=== PATIENT | female | born 1945 | race African-American/Black ===

== ENCOUNTER → 2016-09-02 | Outpatient (CLI) | payer OTHER ==
[~2016-09-02] MED LIST: AVAPRO300 MG PO; CYCLOBENZAPRINE10 MG PO; METFORMIN 500500 MG PO; NORVASC 5 MG TAB5 MG PO; PROTONIX40 MG PO; TOPROL XL50 MG PO
--- NOTE | ~2016-09-02 | SLE ---
[facility] [place] [address] POLYSOMNOGRAPHY STUDY Name: LUPILLO MARQUEZ [id number] Admission: 09/02/16 Attend Phys: Rj Fry MD Discharge: Date of : 47 Report #: [id number] THIS REPORT FOR: //name// CC: Rhiannon Bahena HISTORY: Prior study August 02 showed an apnea-hypopnea index of 16 events per sleep hour, REM AHI is 62, supine 19, left lateral 3 events per sleep hour. COMMENTS: CPAP TITRATION: Titrated at 5, 6, 7, 8, 9, and 10 cm water pressure. At 10 cm water pressure, the patient was seen for 120 minutes of which 29 minutes was in REM sleep. Apnea-hypopnea index of 0 events per sleep hour. Low oxygen saturation 93%. The patient was seen in supine REM sleep. IMPRESSION: 1. Obstructive sleep apnea/hypopnea, G47.33. 2. CPAP improves the patient's apnea-hypopnea index, snoring and desaturation. 3. Premature atrial contractions/premature ventricular contractions noted. 4. The patient with history of lower back. SUGGESTIONS: 1. The usual sleep apnea suggestions recommended. 2. Please see prior study. 3. Oral appliance or appropriate surgery may be considered with appropriate followup. 4. An auto-titrating CPAP between 6 and 12 cm water pressure is initially recommended. During our study, a Respironics Jess view medium mask was used with heated humidity. 5. If signs and symptoms not improved with therapy, further evaluation is recommended. Please do not hesitate to contact me if I may be of further assistance. <ELECTRONICALLY SIGNED> By: Rj Fry MD 09/11/16 2232 [id number] Rj Fry MD /nt
== END ==
LOC: SLEEPLAB 13:16
DX: G47.33 Obstructive sleep apnea (adult) (pediatric) (principal)